=== PATIENT | male | born 1955 | race Caucasian/White ===

== ENCOUNTER 2022-01-21 05:49 | Outpatient (CLI) | payer MEDICARE ==
[~2022-01-21] VITALS: Ht 180.3 cm; Wt 181.6 kg
== END 2022-01-21 14:26 | disposition home or self-care (01) ==
LOC: PREOP 05:49
PROVIDERS: ATTEND Surgery
DX: Z01.818 Encounter for other preprocedural examination (principal)

== ENCOUNTER 2022-02-02 08:14 | Day surgery (SDC) | payer MEDICARE ==
[2022-02-02] VITALS (7 sets, daily range): BP systolic 76–187; BP diastolic 52–88
[~2022-02-02] VITALS: Ht 180.3 cm; Wt 181.6 kg
[2022-02-02] MEDS ORDERED: LACTATED RINGERS 1,000 ML IV STA (08:24)
[2022-02-02] MEDS ORDERED: HURRICAINE EXT TUBE (BENZOCAINE) XX PRN (08:30)
--- NOTE | 2022-02-02 08:53 | Progress Note-Pre Operative ---
Pre-Operative Progress Note Date of Available H&P: Jan 13, 2022 Date H&P Reviewed: Feb 02, 2022 Time H&P Reviewed: 08:50 History & Physical: H&P Reviewed, Patient Examed, No changes noted Pre-Operative Diagnosis: Gastritis, + FOBT KIMBERLY SPENCE DO Feb 02, 2022 08:53
[2022-02-02] MEDS ORDERED: PROPOFOL INJECTION 50 ML IV ONE (09:32)
--- NOTE | 2022-02-02 10:18 | Anesthesia-General Post-Op ---
MAC Patient Condition Mental Status/LOC: Same as Preop Cardiovascular: Satisfactory Nausea/Vomiting: Absent Respiratory: Satisfactory Pain: Controlled Complications: Absent Post Op Complications Complications None Follow Up Care/Instructions Patient Instructions None needed. Anesthesiology Discharge Order Discharge Order Patient is doing well, no complaints, stable vital signs, no apparent adverse anesthesia problems. No complications reported per nursing. RIRI RUANO CRNA Feb 02, 2022 10:18
[2022-02-02] MEDS ORDERED: GLYCOPYRROLATE 0.2 MG/ML (ROBINUL) 2 ML VIAL ONE (10:23)
--- NOTE | 2022-02-02 10:28 | Progress Note-Post Operative ---
Post-Operative Progess Note Surgeon (s)/Certified Technician (s) Surgeon KIMBERLY SPENCE DO Certified Technician: Lisbeth Sanders, MSIII Pre-Operative Diagnosis Gastritis, + FOBT Post-Operative Diagnosis Gastritis Hiatal hernia Diverticula polyps int hemorrhoids Procedure & Operative Findings Date of Procedure 02/02/22 Procedure Performed/Findings EGD with bx Colonoscopy with hot bx Colonoscopy with snare PROCEDURE NOTE: After informed consent was obtained, the patient was brought to the endoscopy suite, placed in bed in left lateral decubitus position. He was administered IV sedation by the BRISKET PULLER who then monitored vitals the entire time, heart rate, blood pressure and pulse ox and the scope was inserted down the mouth through the esophagus into the stomach. On the way down, noted some mild esophagitis, took a picture, pushed into the stomach, pushed past the antrum into the duodenum. Duodenum looked good. Pulled back and did a biopsy of antrum, then retroflexed the scope, saw a small hiatal hernia, took a picture of this. Then pulled the scope into the GE junction, took another picture of the hiatal hernia and then did a biopsy of the GE junction. Pushed the scope back into the stomach, suctioned all the air out of the stomach. At this point pulled the scope up the esophagus and out the mouth. Switched camera, switched gloves, went down below, started the colonoscopy. Pushed all the way into about 140 cm to get all the way to cecum. On the way in noted multiple large diverticula and a large polyp. Once in the cecum, took a picture of the appendiceal orifice, noted the ileocecal valve and then slowly withdrew the scope. Insufflating to look circumferentially at the kenney looking the cecum, up the ascending colon to the hepatic flexure, then down the transverse colon. I found a small flat polyp here and did a hot biopsy. Next got to the splenic flexure and into the descending colon where I found another polyp and did another hot biopsy. Down into the sigmoid where I found some larger polyps that I removed completely with snare. Then found at least a 2 cm polyp that I was able to get all the way around and remove at the stalk. I then suctioned it up to the scope and pulled it out. Pushed the scope back into the rectum, retroflexed in the rectal vault, saw some minimal internal hemorrhoids and took a picture of this. The patient tolerated the procedure and he recovered in the endoscopy suite. Recommended for repeat colonoscopy in 1 years Anesthesia Type IV sedation by BRISKET PULLER Estimated Blood Loss Estimated blood loss (mL): scant Specimens/Packing Specimens Removed antral bx body of stomach bx GE jxn bx transverse colon polyp desc colon polyp sigmoid polyps KIMBERLY SPENCE DO Feb 02, 2022 10:28
--- NOTE | 2022-02-02 10:30 | Endoscopy Discharge Instruct ---
Endo Procedure/Findings Findings 1.: Hiatal Hernia, Gastritis 2.: Polyp 3.: Diverticulosis 4.: Internal Hemorrhoids Discharge Instructions - Activity: You might feel a little sleepy until tomorrow. This is due to the medicine you received to relax you. Until tomorrow, you should: NOT drive a car, operate machinery or power tools. NOT drink any alcoholic beverages. NOT make any important decisions or sign importortant papers. Do not return to work until tomorrow, unless otherwise instructed. Resume previous activities tomorrow. Diet: Start by taking liquids. If you tolerate liquids, advance to solid food. 1.: Colonoscopy in 1 year 2.: EGD in 3 years Notify Physician - If you experience excessive bleeding, unusual abdominal pain, fever, or chest pain, contact your doctor immediately. KIMBERLY SPENCE DO Feb 02, 2022 10:30
== END 2022-02-02 11:20 | disposition home or self-care (01) ==
LOC: ENDO 08:14
PROVIDERS: ATTEND Surgery
DX: D12.3 Benign neoplasm of transverse colon (principal); D12.4 Benign neoplasm of descending colon; D12.5 Benign neoplasm of sigmoid colon; K57.30 Diverticulosis of large intestine without perforation or abscess without bleeding; K44.9 Diaphragmatic hernia without obstruction or gangrene; K64.8 Other hemorrhoids; K29.70 Gastritis, unspecified, without bleeding; K63.5 Polyp of colon; Z87.891 Personal history of nicotine dependence